=== PATIENT | female | born 1940 | race Caucasian/White ===

== ENCOUNTER → 2017-01-31 | Outpatient (CLI) | payer OTHER ==
[2014-07-14 09:54] VITALS: BP 152/62
[2017-01-31 09:20] LABS: BASOPHILS % (AUTO) 0.7 % (0.2-1.0); EOSINOPHILS # (AUTO) 0.1 x10^3/uL (0.0-0.2); EOSINOPHILS % (AUTO) 1.5 % (0.9-2.9); HEMATOCRIT 36.1 % (36.0-47.0); HEMOGLOBIN 12.3 g/dL (12.0-16.0); LYMPHOCYTES # (AUTO) 1.7 X10^3/uL (1.3-2.9); LYMPHOCYTES % (AUTO) 24.2 % (21.0-51.0); MEAN CORPUSCULAR HEMOGLOBIN 32.5 pg (27.0-34.0); MEAN CORPUSCULAR VOLUME 95.6 fL (80.0-100.0); MONOCYTES # (AUTO) 0.5 x10^3/uL (0.3-0.8); MONOCYTES % (AUTO) 6.4 % (0.0-13.0); NEUTROPHILS # (AUTO) 4.8 x10^3/uL (2.2-4.8); NEUTROPHILS % (AUTO) 67.2 % (42.0-75.0); PLATELET COUNT 298 X10^3/uL (150.0-450.0); RED BLOOD COUNT 3.78 X10^6/uL (3.5-5.4); RED CELL DISTRIBUTION WIDTH 14.9 % (11.6-16.5); WHITE BLOOD COUNT 7.1 X10^3/uL (3.6-10.0)
[2017-01-31 09:30] LABS: HEMOGLOBIN A1C 6.3 % (4.5-6.2)
[2017-01-31 09:42] LABS: ALANINE AMINOTRANSFERASE 19 Units/L (12-78); ALBUMIN 3.3 g/dL (3.4-5.0); ALKALINE PHOSPHATASE 51 Units/L (46-116); ASPARTATE AMINO TRANSFERASE 19 Units/L (15-37); BLOOD UREA NITROGEN 24 mg/dL (7-18); CARBON DIOXIDE 31.8 mmol/L (21-32); CHLORIDE 111 mmol/L (98-107); CHOL/HDL RATIO 2.6 (0.0-5.0); CHOLESTEROL 156 mg/dL (0-200); COR CA(FOR HYPOALB) 9.6 mg/dL (8.5-10.1); CREATININE 0.86 mg/dL (0.55-1.02); HDL CHOLESTEROL 59 mg/dL (40-60); SODIUM 146 mmol/L (136-145); TOTAL PROTEIN 6.1 g/dL (6.4-8.2); TRIGLYCERIDES 85 mg/dL (0-150); eGFR BLACK RACES > 60 (>60); eGFR NON BLACK RACES > 60 (>60)
[2017-01-31 09:45] LABS: CREATININE,URINE 175.85 mg/dL (29-226)
[2017-01-31 10:35] LABS: MICROALBUMIN,URINE 1189.7 mg/L
== END ==
LOC: LAB 08:41
PROVIDERS: ATTEND Obstetrics & Gynecology Obstetrics
DX: E11.9 Type 2 diabetes mellitus without complications (principal)
CPT/HCPCS: 36415; 80053; 80061; 82043; 83036; 83525; 85025

== ENCOUNTER → 2017-07-30 | Outpatient (CLI) | payer OTHER ==
[2014-07-14 09:54] VITALS: BP 152/62
[2017-07-30 10:29] LABS: HEMOGLOBIN A1C 6.8 %
[2017-07-30 10:44] LABS: BASOPHILS % (AUTO) 0.4 % (0.2-1.0); EOSINOPHILS # (AUTO) 0.2 x10^3/uL (0.0-0.2); EOSINOPHILS % (AUTO) 2.1 % (0.9-2.9); HEMATOCRIT 35.4 % (36.0-47.0); HEMOGLOBIN 11.9 g/dL (12.0-16.0); LYMPHOCYTES # (AUTO) 2.1 X10^3/uL (1.3-2.9); MEAN CORPUSCULAR HEMOGLOBIN 31.8 pg (27.0-34.0); MEAN CORPUSCULAR HGB CONC 33.6 g/dL (33.0-35.0); MEAN CORPUSCULAR VOLUME 94.6 fL (80.0-100.0); MEAN PLATELET VOLUME 7.8 fL (7.4-11.0); MONOCYTES # (AUTO) 0.7 x10^3/uL (0.3-0.8); MONOCYTES % (AUTO) 7.6 % (0.0-13.0); NEUTROPHILS # (AUTO) 6.2 x10^3/uL (2.2-4.8); NEUTROPHILS % (AUTO) 66.9 % (42.0-75.0); PLATELET COUNT 354 X10^3/uL (150.0-450.0); RED BLOOD COUNT 3.74 X10^6/uL (3.5-5.4); RED CELL DISTRIBUTION WIDTH 14.3 % (11.6-16.5); WHITE BLOOD COUNT 9.3 X10^3/uL (3.6-10.0)
[2017-07-30 12:34] LABS: ALANINE AMINOTRANSFERASE 16 Units/L (12-78); ALKALINE PHOSPHATASE 67 Units/L (46-116); ASPARTATE AMINO TRANSFERASE 17 Units/L (15-37); BLOOD UREA NITROGEN 27 mg/dL (7-18); CALCIUM 8.7 mg/dL (8.5-10.1); CARBON DIOXIDE 30.4 mmol/L (21-32); CHLORIDE 108 mmol/L (98-107); CHOL/HDL RATIO 3.3 (0.0-5.0); CHOLESTEROL 153 mg/dL (0-200); COR CA(FOR HYPOALB) 9.5 mg/dL (8.5-10.1); COR NA(FOR HYPERGLY) 144 mmol/L (136-145); CREATININE 1.09 mg/dL (0.55-1.02); HDL CHOLESTEROL 47 mg/dL (40-60); SODIUM 144 mmol/L (136-145); TOTAL PROTEIN 6.8 g/dL (6.4-8.2); TRIGLYCERIDES 101 mg/dL (0-150); eGFR BLACK RACES > 60 (>60); eGFR NON BLACK RACES 52 (>60)
== END ==
LOC: LAB 10:04
PROVIDERS: ATTEND Psychiatry & Neurology Neurology
DX: I10 Essential (primary) hypertension (principal)
CPT/HCPCS: 36415; 80053; 80061; 83036; 85025

== ENCOUNTER → 2017-09-25 | Outpatient (CLI) | payer OTHER ==
[2014-07-14 09:54] VITALS: BP 152/62
== END ==
LOC: RAD 14:42
PROVIDERS: ATTEND Internal Medicine Cardiovascular Disease
DX: R06.09 Other forms of dyspnea (principal)
CPT/HCPCS: 93306

== ENCOUNTER → 2017-10-03 | Outpatient (CLI) | payer OTHER ==
[2014-07-14 09:54] VITALS: BP 152/62
[~2017-10-03] MED LIST: LEXISCAN IV ONE
== END ==
LOC: RAD 08:38
PROVIDERS: ATTEND Internal Medicine Cardiovascular Disease
DX: R07.89 Other chest pain (principal); R11.0 Nausea
CPT/HCPCS: 78452; 93017; A4222; A9502; J2785

== ENCOUNTER 2020-05-27 12:11 | Observation (INO) ==
[2020-05-27 12:19] VITALS: BMI 31.8
--- NOTE | 2020-05-27 12:24 | DR.EXTPAIN ---
HPI Time seen Time Seen by Provider: 05/27/20 12:18 HPI Comment HPI Comment: PATIENT IS 79YR OLD FEMALE IN ER WITH SHOULDER AND NECK PAIN THAT STARTED WHEN SHE WAS AT WORK THIS AM. DENIES CHEST PAIN OR SOB BUT WAS WEAK. MICHELLE FEVER, COUGH OR CONGESTION. HAVE HISTORY OF HYPERTENSION. PAIN IS ACHING AND SHARP AND 7/10. DENIES PREVIOUS SIMILAR PAIN. Complaint/Symptoms Chief Complaint Doctor Comments: NECK AND SHOULDER PAIN. COVID-19 Coronavirus risk:travel/contact w/high risk person: No Has patient experienced Coronavirus symptoms: No Nurses notes reviewed Nurses Notes Review: Yes Source History Provided: Parent Mode of arrival Mode of Arrival: Wheelchair Context History of: None Associated signs and symptoms Associated Signs and Symptoms: Pain PMH PMH Past Medical History: Diabetes and Hypertension Past Surgical History: Yes Surgical History: Cholecystectomy Social History Do you use any recreational Drugs:: No ROS Review of Systems Constitutional: No Symptoms Reported, See HPI, Weakness and Fatigue; negative Fever Eyes: No Symptoms Reported and See HPI; negative Blurred Vision and Diplopia ENTM: No Symptoms Reported and See HPI; negative Nose Discharge and Nose Congestion Respiratoy: No Symptoms Reported and See HPI; negative Moist Cough, Short of Breath and Wheezing Cardiovascular: No Symptoms Reported and See HPI; negative Chest Pain, Edema and Palpitations Gastrointestinal/Abdominal: No Symptoms Reported and See HPI; negative Abdominal Pain, Diarrhea, Nausea and Vomiting Genitourinary: No Symptoms Reported and See HPI; negative Dysuria and Hematuria Neurological: No Symptoms Reported and See HPI; negative Headache, Weakness and Dizziness Musculoskeletal: No Symptoms Reported, See HPI, Neck Pain and Shoulder Integumentary: No Symptoms Reported and See HPI Hematologic/Lymphatic: No Symptoms Reported and See HPI; negative Easy Bruising and Swollen Glands Endocrine: No Symptoms Reported and See HPI; negative Decreased Appetite Psychiatric: No Symptoms Reported and See HPI All Other Systems: Reviewed and Negative PE Vital Signs Vitals: Temperature 98.2 F Pulse Rate 67 Respiratory Rate 29 Blood Pressure 126/61 O2 Sat by Pulse Oximetry 99 General Limitations: No Limitations General Appearance: Alert and In No Apparent Distress Head Head Exam: Normal Inspection and Atraumatic Eyes Eye exam: Normal Appearance, PERRL and EOMI; negative Scleral Icterus and Conjunctival Injection ENT ENT Exam: Normal Exam, Normal Oropharynx, Normal External Ear Exam and TM's No rmal Bilaterally Neck Neck Exam: Normal Inspection and Trachea Midline; negative Tenderness and Lymphadenopathy Chest Chest Inspection: Normal Inspection and Symmetric Chest Wall Rise; negative Tenderness Respiratory Respiratory Exam: Normal Lung Sounds Bilat; negative Accessory Muscle Use, Chest Wall Tenderness and Respiratory Distress Respiratory Exam: Bilateral: Rhonchi and Lower: Rhonchi Cardiovascular Cardiovascular Exam: Normal Rhythm and Systolic Murmur; negative Normal Heart Sounds and Diastolic Murmur Abdominal Exam Abdominal Exam: Normal Inspection, Normal Bowel Sounds and Soft; negative Tenderness Extremities Extremities Exam: Normal Inspection and Normal Capillary Refill; negative Tenderness, Edema and Calf Tenderness Upper Extremities Shoulder Exam: negative Tenderness Back Back Exam: Normal Inspection; negative (R) CVA Tenderness and (L) CVA Tenderness Neurological Neurological Exam: Alert, Oriented X3 and CN II-XII Intact; negative Motor Sens ory Deficit Psychiatric Psychiatric Exam: Normal Affect and Normal Mood Skin Skin Exam: Warm, Dry, Intact and Normal Color; negative Rash MDM Differential Diagnosis Differential Diagnosis: Other (CHEST PAIN/VA, PNEUMONIA, CHF, UTI.) COURSE Treatment Treatment: SEE ORDERS. Consultation Consultation Comments: DISCUSSED PATIENT WITH DR. PETERSEN. HE WILL ADMIT PATIENT. Education/Counseling Education/Counseling: Patient Educated On: Diagnosis ROR Labs Reviewed Laboratory Results Reviewed?: Yes Result Diagrams: 05/28/20 05:35 05/28/20 05:35 Laboratory: WBC 6.5 X10^3/uL (3.6-10.0) 05/27/20 12:34 RBC 3.58 X10^6/uL (3.5-5.4) 05/27/20 12:34 Hgb 11.5 g/dL (12.0-16.0) L 05/27/20 12:34 Hct 34.2 % (36.0-47.0) L 05/27/20 12:34 MCV 95.6 fL (80.0-100.0) 05/27/20 12:34 MCH 32.0 pg (27.0-34.0) 05/27/20 12:34 MCHC 33.5 g/dL (33.0-35.0) 05/27/20 12:34 RDW 14.9 % (11.6-16.5) 05/27/20 12:34 Plt Count 233 X10^3/uL (150.0-450.0) 05/27/20 12:34 MPV 7.6 fL (7.4-11.0) 05/27/20 12:34 Neut % (Auto) 69.9 % (42.0-75.0) 05/27/20 12:34 Lymph % (Auto) 20.1 % (21.0-51.0) L 05/27/20 12:34 [place] % (Auto) 9.7 % (0.0-13.0) 05/27/20 12:34 Eos % (Auto) 0.1 % (0.9-2.9) L 05/27/20 12:34 Baso % (Auto) 0.2 % (0.2-1.0) 05/27/20 12:34 Neut # (Auto) 4.5 x10^3/uL (2.2-4.8) 05/27/20 12:34 Lymph # (Auto) 1.3 X10^3/uL (1.3-2.9) 05/27/20 12:34 [place] # (Auto) 0.6 x10^3/uL (0.3-0.8) 05/27/20 12:34 Eos # (Auto) 0.0 x10^3/uL (0.0-0.2) 05/27/20 12:34 Baso # (Auto) 0.0 X10^3/uL (0.0-0.1) 05/27/20 12:34 Absolute Nucleated RBC 0.0 /100WBC 05/27/20 12:34 Sodium 139 mmol/L (136-145) 05/27/20 12:34 Corrected Sodium 142 mmol/L (136-145) 05/27/20 12:34 Potassium 4.9 mmol/L (3.5-5.1) 05/27/20 12:34 Chloride 102 mmol/L (98-107) 05/27/20 12:34 Carbon Dioxide 29.5 mmol/L (21-32) 05/27/20 12:34 BUN 40 mg/dL (7-18) H 05/27/20 12:34 Creatinine 1.49 mg/dL (0.55-1.02) H 05/27/20 12:34 Est GFR (MDRD) Af Amer 43 (>60) L 05/27/20 12:34 Est GFR (MDRD) Non-Af 36 (>60) L 05/27/20 12:34 Glucose 206 mg/dL (65-99) H 05/27/20 12:34 Calcium 8.6 mg/dL (8.5-10.1) 05/27/20 12:34 Corrected Calcium TNP 05/27/20 12:34 Total Bilirubin 0.30 mg/dL (0.2-1.0) 05/27/20 12:34 AST 23 Units/L (15-37) 05/27/20 12:34 ALT 14 Units/L (12-78) 05/27/20 12:34 Alkaline Phosphatase 87 Units/L (46-116) 05/27/20 12:34 Creatine Kinase 54 Units/L (26-192) 05/27/20 12:34 CK-MB (CK-2) < 1.0 ng/mL (0-4.0) 05/27/20 12:34 CK/CKMB % Calc 1.9 % (<4) 05/27/20 12:34 Troponin I < 0.02 ng/mL (0-1.5) 05/27/20 12:34 Total Protein 6.6 g/dL (6.4-8.2) 05/27/20 12:34 Albumin 3.4 g/dL (3.4-5.0) 05/27/20 12:34 Globulin 3.2 g/dL (2.5-4.5) 05/27/20 12:34 Albumin/Globulin Ratio 1.1 Ratio (1.1-2.1) 05/27/20 12:34 SARS CoV-2 RNA Rapid NORMA Positive (NEGATIVE) A 05/27/20 14:54 XRAY XRAY Interpreted by: Radiologist (REPORT NOTED AND DISCUSSED WITH PATIENT.) and Self EKG Rate: 65 [place]: Normal Rhythm: NSR Block: None Hypertrophy: None ST: Old, Ant and Infarct Opioid Opioid Risk Tool Age (Vasyl box if 16-45): No History of Preadolescent Sexual Abuse: No Total: 0 Total Score Risk Category: Low Risk Copyright: Phillip MARTIN predicting aberrant behaviors Diagnosis Discharge Problem: Chest pain, rule out acute myocardial infarction, COVID-19 virus infection Instructions Forms: EUA Consent Excuse From Work or School Precautions for COVID19 Patient Portal Social Distancing
[2020-05-27 12:59] LABS: BASOPHILS % (AUTO) 0.2 % (0.2-1.0); EOSINOPHILS % (AUTO) 0.1 % (0.9-2.9); HEMATOCRIT 34.2 % (36.0-47.0); HEMOGLOBIN 11.5 g/dL (12.0-16.0); LYMPHOCYTES # (AUTO) 1.3 X10^3/uL (1.3-2.9); LYMPHOCYTES % (AUTO) 20.1 % (21.0-51.0); MEAN CORPUSCULAR HGB CONC 33.5 g/dL (33.0-35.0); MEAN CORPUSCULAR VOLUME 95.6 fL (80.0-100.0); MEAN PLATELET VOLUME 7.6 fL (7.4-11.0); MONOCYTES # (AUTO) 0.6 x10^3/uL (0.3-0.8); MONOCYTES % (AUTO) 9.7 % (0.0-13.0); NEUTROPHILS # (AUTO) 4.5 x10^3/uL (2.2-4.8); NEUTROPHILS % (AUTO) 69.9 % (42.0-75.0); PLATELET COUNT 233 X10^3/uL (150.0-450.0); RED BLOOD COUNT 3.58 X10^6/uL (3.5-5.4); RED CELL DISTRIBUTION WIDTH 14.9 % (11.6-16.5); WHITE BLOOD COUNT 6.5 X10^3/uL (3.6-10.0)
--- NOTE | 2020-05-27 13:02 | RAD ---
HISTORYSOBSTUDYCHEST, 1 [id number]/2020FINDINGSThe trachea is midline. The cardiac silhouette is stable. The lungs are clear without focal infiltrate or effusion. The bony thorax is unremarkable.IMPRESSIONNo acute cardiopulmonary disease.Electronically signed by: VICKI BISHOP (May 27, 2020 12:59:46)
[2020-05-27 13:04] LABS: BLOOD UREA NITROGEN 40 mg/dL (7-18); CALCIUM 8.6 mg/dL (8.5-10.1); CARBON DIOXIDE 29.5 mmol/L (21-32); CHLORIDE 102 mmol/L (98-107); COR NA(FOR HYPERGLY) 142 mmol/L (136-145); CREATININE 1.49 mg/dL (0.55-1.02); SODIUM 139 mmol/L (136-145); TROPONIN I < 0.02 ng/mL (0-1.5); eGFR NON BLACK RACES 36 (>60)
[2020-05-27 13:08] LABS: ALANINE AMINOTRANSFERASE 14 Units/L (12-78); ALBUMIN 3.4 g/dL (3.4-5.0); ALKALINE PHOSPHATASE 87 Units/L (46-116); ASPARTATE AMINO TRANSFERASE 23 Units/L (15-37); CKMB % 1.9 % (<4); CREATINE KINASE 54 Units/L (26-192); CREATINE KINASE MB < 1.0 ng/mL (0-4.0); TOTAL PROTEIN 6.6 g/dL (6.4-8.2)
--- NOTE | 2020-05-27 13:08 | CT ---
HISTORYACUTE HEAD AND NECK PAINSTUDYBRAIN W/O [id number] images through the head was performed without contrast. CT scan was performed following ALARA (As low as Reasonably Achievable).Coronal and Sagittal reformatted images were performed.FINDINGSThe ventricles are normal in size and symmetric. There is no evidence of acute hemorrhage mass effect or edema. There are unchanged mild periventricular hypo attenuations. There is no hyperdense vessel. There is calcification of the left vertebral artery, no intra or extra-axial fluid collectionsBone Windows the mastoid cells and included paranasal sinuses are clearNo orbital masses. There is no evidence of acute fractures. No sellar masses. The cervicocranial junction is unremarkable.IMPRESSIONNo acute intracranial abnormality, stable mild periventricular white matter changes likely microvascular ischemic disease in these age population.Electronically signed by: Tressa Doss (May 27, 2020 13:06:16)
[2020-05-27] MEDS ORDERED: HYDROCHLOROTHIAZIDE 25 MG TAB PO SCH (20:25)
[2020-05-27] MEDS ORDERED: NS 1000 ML 1,000 ML IV SCH (20:25)
[2020-05-27] MEDS: ACTOS PO SCH (20:25)
[2020-05-27] MEDS ORDERED: ZESTRIL TAB 20 MG ONE (20:28)
[2020-05-27] MEDS ORDERED: NS 1000 ML 1,000 ML ONE (20:35)
[2020-05-27] MEDS ORDERED: HumuLIN R ONE (20:45)
[2020-05-27] MEDS: HumuLIN R SUBCUT PRN ×2 (20:48→20:56)
[2020-05-27] MEDS ORDERED: ZOCOR TAB 20 MG PO SCH (21:00)
[2020-05-27] MEDS ORDERED: ZESTRIL TAB 20 MG PO SCH (21:00)
[2020-05-27 23:43] LABS: CKMB % 2.1 % (<4); CREATINE KINASE 47 Units/L (26-192); CREATINE KINASE MB < 1.0 ng/mL (0-4.0); TROPONIN I < 0.02 ng/mL (0-1.5)
[2020-05-28 06:00] LABS: BASOPHILS % (AUTO) 0.3 % (0.2-1.0); EOSINOPHILS % (AUTO) 0.5 % (0.9-2.9); HEMATOCRIT 33.7 % (36.0-47.0); HEMOGLOBIN 11.2 g/dL (12.0-16.0); LYMPHOCYTES # (AUTO) 1.4 X10^3/uL (1.3-2.9); LYMPHOCYTES % (AUTO) 25.9 % (21.0-51.0); MEAN CORPUSCULAR HEMOGLOBIN 31.5 pg (27.0-34.0); MEAN CORPUSCULAR HGB CONC 33.3 g/dL (33.0-35.0); MEAN CORPUSCULAR VOLUME 94.7 fL (80.0-100.0); MEAN PLATELET VOLUME 7.5 fL (7.4-11.0); MONOCYTES # (AUTO) 0.6 x10^3/uL (0.3-0.8); MONOCYTES % (AUTO) 11.8 % (0.0-13.0); NEUTROPHILS # (AUTO) 3.3 x10^3/uL (2.2-4.8); NEUTROPHILS % (AUTO) 61.5 % (42.0-75.0); PLATELET COUNT 223 X10^3/uL (150.0-450.0); RED BLOOD COUNT 3.56 X10^6/uL (3.5-5.4); RED CELL DISTRIBUTION WIDTH 14.8 % (11.6-16.5); WHITE BLOOD COUNT 5.4 X10^3/uL (3.6-10.0)
[2020-05-28 06:28] LABS: ALANINE AMINOTRANSFERASE 11 Units/L (12-78); ALBUMIN 3.1 g/dL (3.4-5.0); ALKALINE PHOSPHATASE 77 Units/L (46-116); ASPARTATE AMINO TRANSFERASE 22 Units/L (15-37); BLOOD UREA NITROGEN 37 mg/dL (7-18); CALCIUM 8.7 mg/dL (8.5-10.1); CARBON DIOXIDE 29.4 mmol/L (21-32); CHLORIDE 106 mmol/L (98-107); CHOL/HDL RATIO 2.8 (0.0-5.0); CHOLESTEROL 143 mg/dL (0-200); CKMB % 2.2 % (<4); COR CA(FOR HYPOALB) 9.4 mg/dL (8.5-10.1); CREATINE KINASE 46 Units/L (26-192); CREATINE KINASE MB < 1.0 ng/mL (0-4.0); HDL CHOLESTEROL 52 mg/dL (40-60); MAGNESIUM 2.4 mg/dL (1.7-2.9); SODIUM 144 mmol/L (136-145); TOTAL PROTEIN 6.3 g/dL (6.4-8.2); TRIGLYCERIDES 98 mg/dL (0-150); TROPONIN I < 0.02 ng/mL (0-1.5); eGFR NON BLACK RACES 51 (>60)
--- NOTE | 2020-05-28 07:21 | RAD ---
HISTORY:Chest pain, COVID-19Study: Single view chestComparison:05/27/2020Findings:Single portable view submitted. There are subpleural opacities at the right lung base which may represent pneumonia. No effusion or pneumothorax identified. Heart size is normal. Soft tissues are intact.IMPRESSION:Subpleural opacities at the right lung base that may represent pneumonia versus loculated pleural fluid.Electronically signed by: TROY HAMEED (May 28, 2020 07:19:48)
[2020-05-28] MEDS ORDERED: COREG TAB 3.125 MG PO SCH (09:00)
[2020-05-28] MEDS ORDERED: REMDESIVIR 200 MG in NS 250 ML IV 250 ML IV ONE (09:24)
[2020-05-28] MEDS ORDERED: ZOSYN VIAL 3.375 GRAMS 3.375 G in NS 100 ML IV + SPIKE MINIBAG* 100 ML IV SCH (09:24)
[2020-05-28] MEDS ORDERED: ZOSYN VIAL 3.375 GRAMS IV ONE (09:53)
[2020-05-28] MEDS ORDERED: REMDESIVIR IV ONE (09:53)
[2020-05-28] MEDS ORDERED: NS 250 ML IV 250 ML IV ONE ×2 (09:54→15:39)
[2020-05-28] MEDS ORDERED: NS 100 ML IV + SPIKE MINIBAG* 100 ML IV ONE (09:54)
[2020-05-28] MEDS: ACTOS PO SCH (10:00)
[2020-05-28] MEDS ORDERED: IVERMECTIN ONE (11:56)
[2020-05-28] MEDS ORDERED: IVERMECTIN PO SCH (12:00)
[2020-05-28 12:45] LABS: ABG BASE EXCESS 6.8 mmol/L (-2.0-2.0)
[2020-05-28 12:47] LABS: ABG ALLEN TEST POS; ABG HCO3 31.3 mmol/L (22-26)
[2020-05-28] MEDS ORDERED: NS IV ONE (15:36)
[2020-05-28] MEDS ORDERED: BAMLANIVIMAB IV ONE (15:36)
[2020-05-28 18:54] VITALS: BP 176/74
[2020-05-28] MEDS ORDERED: SNACK - Diabetic Appropriate PO SCH (20:00)
[2020-05-29] MEDS ORDERED: REMDESIVIR 100 MG in NS 250 ML IV 250 ML IV SCH (09:00)
== END 2020-05-28 18:30 | disposition home or self-care (01) ==
LOC: OBS 12:11 → ER 12:11 → OBS 18:27
PROVIDERS: ADMIT Internal Medicine; ATTEND Family Medicine
DX: R07.89 Other chest pain; R06.02 Shortness of breath; E11.65 Type 2 diabetes mellitus with hyperglycemia; R94.4 Abnormal results of kidney function studies; M54.2 Cervicalgia; I10 Essential (primary) hypertension; R94.31 Abnormal electrocardiogram [ECG] [EKG]; R51.9 Headache, unspecified; U07.1 COVID-19